=== PATIENT | male | born 1935 | race Caucasian/White ===

== ENCOUNTER → 2017-02-16 | Outpatient (CLI) | payer OTHER ==
[~2017-02-16] MED LIST: CLARITIN PO; FLOMAX0.4 MG PO; FLUTICASONE PO; JANUVIA100 MG PO; LANSOPRAZOLE30 MG PO; LANTUS100 UNITS/ SC; MOBIC7.5 MG PO
[2017-02-17 10:37] LABS: INR 1.37; PROTHROMBIN TIME 17.6 seconds (11.9-14.5)
== END ==
LOC: NPA 18:00
DX: R69 Illness, unspecified (principal)
CPT/HCPCS: 36415; 85610

== ENCOUNTER → 2017-02-18 | Outpatient (CLI) | payer OTHER ==
[2017-02-23 09:13] LABS: INR 1.64; PROTHROMBIN TIME 20.3 seconds (11.9-14.5)
[2017-02-23 09:15] LABS: ANION GAP 14.8 mmol/L (8-16); BLOOD UREA NITROGEN 14 mg/dL (7-26); BUN/CREATININE RATIO 17 (6-25); CALCIUM 9.6 mg/dL (8.4-10.2); CARBON DIOXIDE 25 mmol/L (22-29); CHLORIDE 102 mmol/L (98-107); CREATININE, SERUM 0.83 mg/dL (0.72-1.25); EST GLOMERULAR FILTRATION RATE > 60 ML/MIN (60-); GLUCOSE 182 mg/dL (74-118); POTASSIUM 3.8 mmol/L (3.5-5.1); SODIUM 138 mmol/L (136-145)
[2017-02-23 09:16] LABS: BASOPHILS # (AUTO) 0.1 (0.0-0.1); BASOPHILS % 1.2 % (0.0-1.0); EOSINOPHILS # (AUTO) 0.5 (0.0-0.4); HEMATOCRIT 47.8 % (38.2-49.6); HEMOGLOBIN 16.5 g/dL (14.0-18.0); LYMPHOCYTES # (AUTO) 2.6 (1.0-3.2); LYMPHOCYTES % 34.4 % (18.0-39.1); MEAN CORPUSCULAR HEMOGLOBIN 32.7 pg (28-32); MEAN CORPUSCULAR HGB CONC 34.5 g/dL (31-35); MEAN CORPUSCULAR VOLUME 94.8 fL (81-99); MONOCYTES # (AUTO) 0.9 (0.2-0.8); MONOCYTES % 11.8 % (4.4-11.3); NEUTROPHILS # (AUTO) 3.4 (2.1-6.9); NEUTROPHILS % 45.9 % (38.7-80.0); PLATELET COUNT 255 x10e3/uL (140-360); RED BLOOD COUNT 5.04 x10e6/uL (4.3-5.7); RED CELL DISTRIBUTION WIDTH 13.2 % (11.7-14.4)
== END ==
LOC: NPA 13:00
DX: R69 Illness, unspecified (principal)
CPT/HCPCS: 36415; 80048; 85025; 85610

== ENCOUNTER → 2017-02-23 | Outpatient (CLI) | payer OTHER ==
[2017-02-23 17:43] LABS: INR 1.2; PROTHROMBIN TIME 15.8 seconds (11.9-14.5)
== END ==
LOC: NPA 09:00
DX: R69 Illness, unspecified (principal)
CPT/HCPCS: 36415; 85610

== ENCOUNTER → 2017-02-28 | Outpatient (CLI) | payer OTHER ==
[2017-02-28 18:27] LABS: INR 1.54; PROTHROMBIN TIME 19.3 seconds (11.9-14.5)
[2017-03-02 18:58] LABS: INR 1.42; PROTHROMBIN TIME 18.1 seconds (11.9-14.5)
== END ==
LOC: NPA 17:00
DX: Z02.89 Encounter for other administrative examinations (principal)
CPT/HCPCS: 36415; 85610

== ENCOUNTER → 2017-03-02 | Outpatient (CLI) | payer OTHER | LOC: NPA 09:00 | DX: Z02.89 Encounter for other administrative examinations (principal) ==

== ENCOUNTER 2020-06-03 19:07 | Emergency (ER) | payer MEDICARE, OTHER ==
[~2020-06-03] VITALS: Ht 185.4 cm; Wt 102.1 kg
== END 2020-06-03 20:44 | disposition home or self-care (01) ==
LOC: ER 19:43
DX: L76.21 Postprocedural hemorrhage of skin and subcutaneous tissue following a dermatologic procedure (principal); Z85.828 Personal history of other malignant neoplasm of skin
CPT/HCPCS: 99282

== ENCOUNTER 2022-05-02 11:33 | Inpatient (IN) | payer MEDICARE, OTHER ==
[~2022-05-02] VITALS: Ht 185.4 cm; Wt 154.2 kg
[2022-05-02] MEDS ORDERED: FUROSEMIDE INJ 10 MG/ML 4 ML VIAL IV ONE ×2 (12:00→17:15)
[2022-05-02 12:13] LABS: BASOPHILS # (AUTO) 0.1 (0.0-0.1); BASOPHILS % 0.6 % (0.0-1.0); EOSINOPHILS # (AUTO) 0.2 (0.0-0.4); HEMATOCRIT 38.3 % (38.2-49.6); HEMOGLOBIN 12.4 g/dL (14.0-18.0); LYMPHOCYTES # (AUTO) 1.2 (1.0-3.2); LYMPHOCYTES % 13.7 % (18.0-39.1); MEAN CORPUSCULAR HEMOGLOBIN 31.5 pg (28-32); MEAN CORPUSCULAR HGB CONC 32.4 g/dL (31-35); MEAN CORPUSCULAR VOLUME 97.2 fL (81-99); MONOCYTES # (AUTO) 1.2 (0.2-0.8); NEUTROPHILS # (AUTO) 5.9 (2.1-6.9); NEUTROPHILS % 69.1 % (38.7-80.0); PLATELET COUNT 194 x10e3/uL (140-360); RED BLOOD COUNT 3.94 x10e6/uL (4.3-5.7); RED CELL DISTRIBUTION WIDTH 15.9 % (11.7-14.4)
[2022-05-02 12:19] LABS: INR 1.41; PROTHROMBIN TIME 17.4 seconds (11.9-14.5)
[2022-05-02 12:20] LABS: PARTIAL THROMBOPLASTIN TIME 35.9 seconds (23.8-35.5)
[2022-05-02 12:28] LABS: ALBUMIN 2.9 g/dL (3.5-5.0); ALBUMIN/GLOBULIN RATIO 0.6 (0.8-2.0); ANION GAP 13.3 mmol/L (8-16); CALCIUM 8.8 mg/dL (8.4-10.2); CREATININE, SERUM 0.87 mg/dL (0.72-1.25); POTASSIUM 4.3 mmol/L (3.5-5.1)
[2022-05-02 12:41] LABS: CLARITY,URINE CLEAR (CLEAR); COLOR,URINE YELLOW (YELLOW); KETONES,URINE NEGATIVE (NEGATIVE); LEUKOCYTE ESTERASE ,URINE NEGATIVE (NEGATIVE); NITRITE,URINE NEGATIVE (NEGATIVE); PROTEIN,URINE DIPSTICK 1+ (NEGATIVE); RBC,URINE 0-5 /HPF (0-5)
[2022-05-02 12:42] LABS: BACTERIA,URINE FEW /HPF; EPITHELIAL CELLS,URINE FEW /LPF
[2022-05-02] MEDS ORDERED: ONDANSETRON HCL INJ 2MG/ML 2ML 2 MG/ML VIAL IV PRN (13:15)
[2022-05-02] MEDS ORDERED: SODIUM CHLORIDE FLUSH 10 ML SYR INJ PRN (13:15)
[2022-05-02 16:29] VITALS: BP 140/77
[2022-05-02 17:54] LABS: CHOL/HDL RATIO 2.7 (3.9-4.7)
[2022-05-02] MEDS ORDERED: AVODART0.5 MG PO (17:57)
[2022-05-02] MEDS ORDERED: WARFARIN SODIUM3 MG PO (17:57)
[2022-05-02 17:58] VITALS: BP 140/77
[2022-05-02 18:39] LABS: THYROID STIMULATING HORMONE 1.687 uIU/mL (0.350-4.940)
[2022-05-02] MEDS ORDERED: DEXTROSE 50% SYRINGE 50 ML IV PRN (19:30)
[2022-05-02 20:00] VITALS: BP 117/60
[2022-05-02] MEDS: ENOXAPARIN SODIUM INJ 100 MG/ML SYR SC SCH (21:06)
[2022-05-02 21:07] LABS: CREATINE KINASE MB 2.1 ng/mL (0-5.0)
[2022-05-02] MEDS: INSULIN LISPRO 100 UNIT/1 ML 3ML VIAL SQ SCH (21:58)
[2022-05-03 01:54] VITALS: BP 117/60
[2022-05-03 04:00] VITALS: BP 134/76
[2022-05-03 04:35] LABS: BASOPHILS % 0.5 % (0.0-1.0); EOSINOPHILS # (AUTO) 0.1 (0.0-0.4); EOSINOPHILS % 1.5 % (0.0-6.0); HEMATOCRIT 36.9 % (38.2-49.6); HEMOGLOBIN 12.1 g/dL (14.0-18.0); LYMPHOCYTES # (AUTO) 1.2 (1.0-3.2); LYMPHOCYTES % 14.1 % (18.0-39.1); MEAN CORPUSCULAR HEMOGLOBIN 31.6 pg (28-32); MEAN CORPUSCULAR HGB CONC 32.8 g/dL (31-35); MEAN CORPUSCULAR VOLUME 96.3 fL (81-99); MONOCYTES # (AUTO) 1.4 (0.2-0.8); MONOCYTES % 15.6 % (4.4-11.3); NEUTROPHILS # (AUTO) 5.9 (2.1-6.9); NEUTROPHILS % 67.7 % (38.7-80.0); PLATELET COUNT 171 x10e3/uL (140-360); RED BLOOD COUNT 3.83 x10e6/uL (4.3-5.7); RED CELL DISTRIBUTION WIDTH 15.4 % (11.7-14.4)
[2022-05-03 04:47] LABS: INR 1.49; PROTHROMBIN TIME 18.1 seconds (11.9-14.5)
[2022-05-03 04:56] LABS: ALBUMIN 2.8 g/dL (3.5-5.0); ALBUMIN/GLOBULIN RATIO 0.6 (0.8-2.0); ANION GAP 14.2 mmol/L (8-16); CALCIUM 8.8 mg/dL (8.4-10.2); CREATININE, SERUM 0.81 mg/dL (0.72-1.25); MAGNESIUM 1.9 MG/DL (1.3-2.1); POTASSIUM 4.2 mmol/L (3.5-5.1)
[2022-05-03 05:16] LABS: CREATINE KINASE MB 1.5 ng/mL (0-5.0)
[2022-05-03] MEDS: INSULIN LISPRO 100 UNIT/1 ML 3ML VIAL SQ SCH ×4 (07:30→22:07)
[2022-05-03 08:00] VITALS: BP 159/93
[2022-05-03] MEDS: ENOXAPARIN SODIUM INJ 100 MG/ML SYR SC SCH (08:40)
[2022-05-03] MEDS: SITAGLIPTIN 100 MG TAB PO SCH (08:42)
[2022-05-03] MEDS: FUROSEMIDE INJ 10 MG/ML 4 ML VIAL IV SCH ×2 (08:42→22:06)
[2022-05-03] MEDS: LOSARTAN POTASSIUM 25 MG TAB PO SCH (08:42)
[2022-05-03] MEDS: DUTASTERIDE 0.5 MG CAP PO SCH (08:42)
[2022-05-03] MEDS: TAMSULOSIN HCL 0.4 MG CAP PO SCH (08:42)
[2022-05-03] MEDS: INSULIN GLARGINE 100 UNITS/ML VIAL SC SCH (08:48)
[2022-05-03 11:59] VITALS: BP 130/69
[2022-05-03] MEDS ORDERED: ONDANSETRON HCL 4 MG ORAL DISINTEGRATING TAB PO PRN (13:00)
[2022-05-03 16:08] LABS: CREATINE KINASE MB 1.6 ng/mL (0-5.0)
[2022-05-03 16:21] VITALS: BP 113/61
[2022-05-03] MEDS: WARFARIN SOD 5 MG TAB PO SCH (17:54)
[2022-05-03 20:00] VITALS: BP 98/56
[2022-05-03] MEDS: ENOXAPARIN SOD INJ 60 MG/0.6 ML SYR SC SCH (22:06)
[2022-05-04] VITALS (7 sets, daily range): BP systolic 110–133; BP diastolic 56–77
[2022-05-04 04:51] LABS: INR 1.4; PROTHROMBIN TIME 17.3 seconds (11.9-14.5)
[2022-05-04 05:01] LABS: ALBUMIN 2.3 g/dL (3.5-5.0); ALBUMIN/GLOBULIN RATIO 0.5 (0.8-2.0); CALCIUM 8.6 mg/dL (8.4-10.2)
[2022-05-04] MEDS: INSULIN LISPRO 100 UNIT/1 ML 3ML VIAL SQ SCH ×4 (07:30→21:02)
[2022-05-04] MEDS: SITAGLIPTIN 100 MG TAB PO SCH (08:59)
[2022-05-04] MEDS: LOSARTAN POTASSIUM 25 MG TAB PO SCH (08:59)
[2022-05-04] MEDS: DUTASTERIDE 0.5 MG CAP PO SCH (08:59)
[2022-05-04] MEDS: TAMSULOSIN HCL 0.4 MG CAP PO SCH (09:00)
[2022-05-04] MEDS: ENOXAPARIN SOD INJ 60 MG/0.6 ML SYR SC SCH ×2 (09:00→20:57)
[2022-05-04] MEDS: FUROSEMIDE INJ 10 MG/ML 4 ML VIAL IV SCH ×2 (09:00→20:57)
[2022-05-04] MEDS: BACITRACIN ZINC 15 GM OINT TOP SCH (09:01)
[2022-05-04] MEDS: INSULIN GLARGINE 100 UNITS/ML VIAL SC SCH (09:01)
[2022-05-04] MEDS ORDERED: TRAMADOL HCL 50 MG TAB PO PRN (10:00)
[2022-05-04] MEDS: WARFARIN SOD 5 MG TAB PO SCH (17:11)
[2022-05-05] VITALS (7 sets, daily range): BP systolic 99–127; BP diastolic 44–60
[2022-05-05 05:03] LABS: BASOPHILS # (AUTO) 0.1 (0.0-0.1); BASOPHILS % 0.6 % (0.0-1.0); EOSINOPHILS # (AUTO) 0.3 (0.0-0.4); EOSINOPHILS % 3.4 % (0.0-6.0); HEMATOCRIT 37.1 % (38.2-49.6); HEMOGLOBIN 12.1 g/dL (14.0-18.0); LYMPHOCYTES # (AUTO) 1.3 (1.0-3.2); LYMPHOCYTES % 16.3 % (18.0-39.1); MEAN CORPUSCULAR HEMOGLOBIN 31.3 pg (28-32); MEAN CORPUSCULAR HGB CONC 32.6 g/dL (31-35); MEAN CORPUSCULAR VOLUME 95.9 fL (81-99); MONOCYTES # (AUTO) 1.2 (0.2-0.8); NEUTROPHILS % 63.8 % (38.7-80.0); PLATELET COUNT 155 x10e3/uL (140-360); RED BLOOD COUNT 3.87 x10e6/uL (4.3-5.7); RED CELL DISTRIBUTION WIDTH 15.2 % (11.7-14.4)
[2022-05-05 05:27] LABS: ALBUMIN 2.5 g/dL (3.5-5.0); ALBUMIN/GLOBULIN RATIO 0.5 (0.8-2.0); ANION GAP 13.2 mmol/L (8-16); CALCIUM 8.4 mg/dL (8.4-10.2); CREATININE, SERUM 1.14 mg/dL (0.72-1.25); POTASSIUM 4.2 mmol/L (3.5-5.1)
[2022-05-05 05:38] LABS: INR 1.51; PROTHROMBIN TIME 18.3 seconds (11.9-14.5)
[2022-05-05] MEDS: INSULIN LISPRO 100 UNIT/1 ML 3ML VIAL SQ SCH ×4 (07:30→21:59)
[2022-05-05] MEDS: FUROSEMIDE INJ 10 MG/ML 4 ML VIAL IV SCH ×2 (08:56→21:33)
[2022-05-05] MEDS: SITAGLIPTIN 100 MG TAB PO SCH (08:56)
[2022-05-05] MEDS: DUTASTERIDE 0.5 MG CAP PO SCH (08:57)
[2022-05-05] MEDS: BACITRACIN ZINC 15 GM OINT TOP SCH (08:57)
[2022-05-05] MEDS: LOSARTAN POTASSIUM 25 MG TAB PO SCH (08:57)
[2022-05-05] MEDS: TAMSULOSIN HCL 0.4 MG CAP PO SCH (08:57)
[2022-05-05] MEDS: INSULIN GLARGINE 100 UNITS/ML VIAL SC SCH (09:38)
[2022-05-05] MEDS ORDERED: WARFARIN SOD 3 MG TAB PO SCH (17:00)
[2022-05-06] VITALS (8 sets, daily range): BP systolic 102–134; BP diastolic 49–67
[2022-05-06 05:09] LABS: INR 1.52; PROTHROMBIN TIME 18.8 seconds (11.9-14.5)
[2022-05-06 05:15] LABS: ANION GAP 13.2 mmol/L (8-16); CALCIUM 8.5 mg/dL (8.4-10.2); CREATININE, SERUM 0.89 mg/dL (0.72-1.25); POTASSIUM 4.2 mmol/L (3.5-5.1)
[2022-05-06] MEDS: INSULIN LISPRO 100 UNIT/1 ML 3ML VIAL SQ SCH ×4 (07:30→21:52)
[2022-05-06] MEDS: INSULIN GLARGINE 100 UNITS/ML VIAL SC SCH (08:48)
[2022-05-06] MEDS: DUTASTERIDE 0.5 MG CAP PO SCH (08:49)
[2022-05-06] MEDS: SITAGLIPTIN 100 MG TAB PO SCH (08:50)
[2022-05-06] MEDS: FUROSEMIDE INJ 10 MG/ML 4 ML VIAL IV SCH ×2 (08:51→21:47)
[2022-05-06] MEDS: BACITRACIN ZINC 15 GM OINT TOP SCH (08:51)
[2022-05-06] MEDS: LOSARTAN POTASSIUM 25 MG TAB PO SCH (08:51)
[2022-05-06] MEDS: TAMSULOSIN HCL 0.4 MG CAP PO SCH (08:51)
[2022-05-06] MEDS ORDERED: WARFARIN SOD 3 MG TAB PO SCH (17:00)
[2022-05-07] VITALS: BP 105/59
[2022-05-07 06:02] LABS: INR 1.6; PROTHROMBIN TIME 19.6 seconds (11.9-14.5)
[2022-05-07 06:18] LABS: ALBUMIN 2.4 g/dL (3.5-5.0); ALBUMIN/GLOBULIN RATIO 0.5 (0.8-2.0); ANION GAP 13.2 mmol/L (8-16); CALCIUM 8.5 mg/dL (8.4-10.2); CREATININE, SERUM 0.86 mg/dL (0.72-1.25); POTASSIUM 4.2 mmol/L (3.5-5.1)
[2022-05-07] MEDS: INSULIN LISPRO 100 UNIT/1 ML 3ML VIAL SQ SCH ×2 (07:30→11:39)
[2022-05-07 08:00] VITALS: BP_SYST 130; BP_SYST 132; BP_DIAS 71; BP_DIAS 85
[2022-05-07 08:09] VITALS: BP 130/71
[2022-05-07] MEDS ORDERED: FUROSEMIDE 40 MG TAB PO SCH (09:00)
[2022-05-07] MEDS: TAMSULOSIN HCL 0.4 MG CAP PO SCH (09:06)
[2022-05-07] MEDS: DUTASTERIDE 0.5 MG CAP PO SCH (09:06)
[2022-05-07] MEDS: SITAGLIPTIN 100 MG TAB PO SCH (09:06)
[2022-05-07] MEDS: LOSARTAN POTASSIUM 25 MG TAB PO SCH (09:07)
[2022-05-07] MEDS: BACITRACIN ZINC 15 GM OINT TOP SCH (09:07)
[2022-05-07] MEDS: INSULIN GLARGINE 100 UNITS/ML VIAL SC SCH (09:13)
[2022-05-07 11:54] VITALS: BP 121/66
== END 2022-05-07 16:44 | disposition home or self-care (01) | DRG 291 ==
LOC: ER 11:52 → INTOOBSV 13:22 → ERHOLD 13:22 → MED/SURG 16:09 → OBSVTOIN 05-04 09:45
PROVIDERS: ADMIT Family Medicine; ATTEND Family Medicine
DX: I11.0 Hypertensive heart disease with heart failure (principal); I50.43 Acute on chronic combined systolic (congestive) and diastolic (congestive) heart failure; Z68.42 Body mass index [BMI] 45.0-49.9, adult; Z86.73 Personal history of transient ischemic attack (TIA), and cerebral infarction without residual deficits; I48.91 Unspecified atrial fibrillation; Z79.01 Long term (current) use of anticoagulants; E66.01 Morbid (severe) obesity due to excess calories; Z88.0 Allergy status to penicillin; Z20.822 Contact with and (suspected) exposure to COVID-19; Z79.899 Other long term (current) drug therapy; E11.40 Type 2 diabetes mellitus with diabetic neuropathy, unspecified
CPT/HCPCS: 36415; 51700; 71045; 80048; 80053; 80061; 81001; 82550; 82553; 82948; 83735; 83880; 84443; 84484; 85025; 85610; 85730; 87040; 93005; 93306; 94799; 99252; 99285; G0378; J1650; J1815; J1940

== ENCOUNTER 2022-05-19 11:51 | Inpatient (IN) | payer MEDICARE ==
[~2022-05-19] VITALS: Ht 185.4 cm; Wt 108.9 kg
[~2022-05-19 11:51] MED LIST changes: +AVODART0.5 MG PO; +WARFARIN SODIUM3 MG PO
[2022-05-19] MEDS ORDERED: JARDIANCE25 MG PO (12:44)
[2022-05-19] MEDS ORDERED: ATORVASTATIN CA20 MG PO (12:46)
[2022-05-19] MEDS ORDERED: LISINOPRIL10 MG PO (12:46)
[2022-05-19 12:53] LABS: BASOPHILS # (AUTO) 0.1 (0.0-0.1); BASOPHILS % 0.6 % (0.0-1.0); EOSINOPHILS # (AUTO) 0.1 (0.0-0.4); EOSINOPHILS % 0.9 % (0.0-6.0); HEMATOCRIT 25.4 % (38.2-49.6); HEMOGLOBIN 8.3 g/dL (14.0-18.0); MEAN CORPUSCULAR HEMOGLOBIN 31.1 pg (28-32); MEAN CORPUSCULAR HGB CONC 32.7 g/dL (31-35); MEAN CORPUSCULAR VOLUME 95.1 fL (81-99); MONOCYTES # (AUTO) 1.1 (0.2-0.8); MONOCYTES % 12.7 % (4.4-11.3); NEUTROPHILS # (AUTO) 6.6 (2.1-6.9); NEUTROPHILS % 73.9 % (38.7-80.0); PLATELET COUNT 177 x10e3/uL (140-360); RED BLOOD COUNT 2.67 x10e6/uL (4.3-5.7); RED CELL DISTRIBUTION WIDTH 16.1 % (11.7-14.4)
[2022-05-19 12:59] LABS: PARTIAL THROMBOPLASTIN TIME 62.1 seconds (23.8-35.5)
[2022-05-19 13:05] LABS: PROTHROMBIN TIME 56.3 seconds (11.9-14.5)
[2022-05-19 13:06] LABS: INR 6.46
[2022-05-19 13:07] LABS: ALBUMIN 2.4 g/dL (3.5-5.0); ALBUMIN/GLOBULIN RATIO 0.6 (0.8-2.0); ANION GAP 16.5 mmol/L (8-16); CALCIUM 8.8 mg/dL (8.4-10.2); CREATININE, SERUM 1.99 mg/dL (0.72-1.25); MAGNESIUM 3.1 MG/DL (1.3-2.1); POTASSIUM 4.5 mmol/L (3.5-5.1)
[2022-05-19 13:14] LABS: CREATINE KINASE MB 3.1 ng/mL (0-5.0)
[2022-05-19 14:15] LABS: CLARITY,URINE SL CLOUDY (CLEAR); COLOR,URINE YELLOW (YELLOW); KETONES,URINE NEGATIVE (NEGATIVE); LEUKOCYTE ESTERASE ,URINE SMALL (NEGATIVE); NITRITE,URINE NEGATIVE (NEGATIVE); PROTEIN,URINE DIPSTICK 1+ (NEGATIVE); URINE UROBILINOGEN 1 mg/dL (0.2 - 1)
[2022-05-19 14:24] LABS: AMORPHOUS SEDIMENT,URINE MODERATE (FEW); BACTERIA,URINE FEW /HPF; EPITHELIAL CELLS,URINE MODERATE /LPF; RBC,URINE 0-5 /HPF (0-5); WBC,URINE (MAN) 0-5 /HPF (0-5)
[2022-05-19] MEDS ORDERED: PHYTONADIONE 10 MG/ML AMP PO ONE (14:30)
[2022-05-19] MEDS ORDERED: SODIUM CHLORIDE 0.9% 250ML 250 ML IV ONE ×2 (14:45→21:30)
[2022-05-19 15:29] LABS: % IRON SATURATION 19 % (15-50); IRON 83 ug/dL (65-175); TOTAL IRON BINDING CAPACITY 426 ug/dL (261-478); TRANSFERRIN 304 mg/dL (174-364)
[2022-05-19] MEDS ORDERED: FUROSEMIDE INJ 10 MG/ML 2 ML VIAL IV ONE (17:00)
[2022-05-19 17:10] VITALS: BP 125/112
[2022-05-19 17:16] VITALS: BP 125/112
[2022-05-19 17:33] VITALS: BP 97/47
[2022-05-19] MEDS ORDERED: LASIX20 MG PO (17:42)
[2022-05-19 17:48] VITALS: BP 97/47
[2022-05-19 18:49] LABS: BASOPHILS % 0.5 % (0.0-1.0); EOSINOPHILS # (AUTO) 0.1 (0.0-0.4); EOSINOPHILS % 0.7 % (0.0-6.0); HEMOGLOBIN 7.8 g/dL (14.0-18.0); LYMPHOCYTES # (AUTO) 1.2 (1.0-3.2); LYMPHOCYTES % 13.4 % (18.0-39.1); MEAN CORPUSCULAR HEMOGLOBIN 31.6 pg (28-32); MEAN CORPUSCULAR HGB CONC 32.5 g/dL (31-35); MEAN CORPUSCULAR VOLUME 97.2 fL (81-99); MONOCYTES # (AUTO) 1.1 (0.2-0.8); NEUTROPHILS # (AUTO) 6.4 (2.1-6.9); NEUTROPHILS % 72.4 % (38.7-80.0); PLATELET COUNT 182 x10e3/uL (140-360); RED BLOOD COUNT 2.47 x10e6/uL (4.3-5.7); RED CELL DISTRIBUTION WIDTH 16.1 % (11.7-14.4)
[2022-05-19 19:17] LABS: CREATINE KINASE MB 4.1 ng/mL (0-5.0)
[2022-05-19 20:00] VITALS: BP 102/50
[2022-05-19 20:40] VITALS: BP 102/50
[2022-05-19] MEDS: ATORVASTATIN 20 MG TAB PO SCH (21:00)
[2022-05-19] MEDS ORDERED: OCTREOTIDE ACETATE 500 MCG in SODIUM CHLORIDE 0.9% 250ML 249 ML IV STA (21:18)
[2022-05-19] MEDS ORDERED: PHYTONADIONE 10 MG/ML AMP SQ ONE (21:30)
[2022-05-19 22:12] LABS: BASOPHILS # (AUTO) 0.1 (0.0-0.1); BASOPHILS % 0.6 % (0.0-1.0); EOSINOPHILS # (AUTO) 0.1 (0.0-0.4); EOSINOPHILS % 0.7 % (0.0-6.0); HEMOGLOBIN 7.4 g/dL (14.0-18.0); LYMPHOCYTES # (AUTO) 1.4 (1.0-3.2); LYMPHOCYTES % 16.1 % (18.0-39.1); MEAN CORPUSCULAR HGB CONC 32.2 g/dL (31-35); MEAN CORPUSCULAR VOLUME 96.2 fL (81-99); MONOCYTES % 12.1 % (4.4-11.3); NEUTROPHILS # (AUTO) 5.8 (2.1-6.9); NEUTROPHILS % 69.2 % (38.7-80.0); PLATELET COUNT 192 x10e3/uL (140-360); RED BLOOD COUNT 2.39 x10e6/uL (4.3-5.7)
[2022-05-19 22:21] LABS: INR 3.26; PROTHROMBIN TIME 33.5 seconds (11.9-14.5)
[2022-05-20] MEDS: ONDANSETRON HCL INJ 2MG/ML 2ML 2 MG/ML VIAL IV PRN (00:04)
[2022-05-20 01:00] VITALS: BP 101/41
[2022-05-20] MEDS ORDERED: FUROSEMIDE INJ 10 MG/ML 2 ML VIAL ONE (01:35)
[2022-05-20] MEDS ORDERED: SODIUM CHLORIDE 0.9% 250ML 250 ML ONE ×2 (01:35→13:02)
[2022-05-20 04:00] VITALS: BP 116/60
[2022-05-20 04:56] LABS: BASOPHILS % 0.4 % (0.0-1.0); EOSINOPHILS % 0.2 % (0.0-6.0); HEMATOCRIT 24.8 % (38.2-49.6); LYMPHOCYTES # (AUTO) 1.2 (1.0-3.2); LYMPHOCYTES % 11.9 % (18.0-39.1); MEAN CORPUSCULAR HEMOGLOBIN 31.4 pg (28-32); MEAN CORPUSCULAR HGB CONC 32.3 g/dL (31-35); MEAN CORPUSCULAR VOLUME 97.3 fL (81-99); MONOCYTES # (AUTO) 1.1 (0.2-0.8); MONOCYTES % 11.2 % (4.4-11.3); NEUTROPHILS # (AUTO) 7.3 (2.1-6.9); PLATELET COUNT 198 x10e3/uL (140-360); RED BLOOD COUNT 2.55 x10e6/uL (4.3-5.7); RED CELL DISTRIBUTION WIDTH 16.2 % (11.7-14.4)
[2022-05-20 05:06] LABS: INR 1.94; PROTHROMBIN TIME 22.6 seconds (11.9-14.5)
[2022-05-20 05:07] LABS: PARTIAL THROMBOPLASTIN TIME 42.4 seconds (23.8-35.5)
[2022-05-20 05:17] LABS: ALBUMIN 2.7 g/dL (3.5-5.0); ALBUMIN/GLOBULIN RATIO 0.7 (0.8-2.0); ANION GAP 20.5 mmol/L (8-16); CALCIUM 8.8 mg/dL (8.4-10.2); CREATININE, SERUM 2.28 mg/dL (0.72-1.25); POTASSIUM 5.5 mmol/L (3.5-5.1)
[2022-05-20 05:38] LABS: CREATINE KINASE MB 3.8 ng/mL (0-5.0)
[2022-05-20 08:45] VITALS: BP 118/52
[2022-05-20 08:58] VITALS: BP 118/52
[2022-05-20] MEDS: INSULIN GLARGINE 100 UNITS/ML VIAL SC SCH (09:00)
[2022-05-20] MEDS: TAMSULOSIN HCL 0.4 MG CAP PO SCH (09:04)
[2022-05-20] MEDS: DUTASTERIDE 0.5 MG CAP PO SCH (09:04)
[2022-05-20] MEDS ORDERED: ALPRAZOLAM 0.25 MG TAB PO PRN (11:15)
[2022-05-20 12:06] LABS: BASOPHILS # (AUTO) 0.1 (0.0-0.1); BASOPHILS % 0.5 % (0.0-1.0); EOSINOPHILS % 0.3 % (0.0-6.0); HEMATOCRIT 25.7 % (38.2-49.6); HEMOGLOBIN 8.2 g/dL (14.0-18.0); LYMPHOCYTES # (AUTO) 1.5 (1.0-3.2); LYMPHOCYTES % 13.7 % (18.0-39.1); MEAN CORPUSCULAR HEMOGLOBIN 31.3 pg (28-32); MEAN CORPUSCULAR HGB CONC 31.9 g/dL (31-35); MEAN CORPUSCULAR VOLUME 98.1 fL (81-99); MONOCYTES # (AUTO) 1.3 (0.2-0.8); MONOCYTES % 12.6 % (4.4-11.3); NEUTROPHILS # (AUTO) 7.6 (2.1-6.9); NEUTROPHILS % 71.2 % (38.7-80.0); PLATELET COUNT 220 x10e3/uL (140-360); RED BLOOD COUNT 2.62 x10e6/uL (4.3-5.7); RED CELL DISTRIBUTION WIDTH 16.8 % (11.7-14.4)
[2022-05-20 12:32] LABS: CREATINE KINASE MB 4.3 ng/mL (0-5.0)
[2022-05-20 15:00] VITALS: BP 118/64
[2022-05-20 17:30] LABS: BASOPHILS # (AUTO) 0.1 (0.0-0.1); BASOPHILS % 0.4 % (0.0-1.0); EOSINOPHILS % 0.3 % (0.0-6.0); HEMATOCRIT 24.2 % (38.2-49.6); HEMOGLOBIN 7.8 g/dL (14.0-18.0); LYMPHOCYTES # (AUTO) 1.7 (1.0-3.2); LYMPHOCYTES % 14.4 % (18.0-39.1); MEAN CORPUSCULAR HEMOGLOBIN 31.2 pg (28-32); MEAN CORPUSCULAR HGB CONC 32.2 g/dL (31-35); MEAN CORPUSCULAR VOLUME 96.8 fL (81-99); MONOCYTES # (AUTO) 1.4 (0.2-0.8); MONOCYTES % 12.2 % (4.4-11.3); NEUTROPHILS # (AUTO) 8.2 (2.1-6.9); PLATELET COUNT 202 x10e3/uL (140-360); RED CELL DISTRIBUTION WIDTH 16.4 % (11.7-14.4)
[2022-05-20 17:41] LABS: INR 1.58; PROTHROMBIN TIME 19.4 seconds (11.9-14.5)
[2022-05-20 17:42] LABS: PARTIAL THROMBOPLASTIN TIME 36.5 seconds (23.8-35.5)
[2022-05-20] MEDS ORDERED: LORAZEPAM INJ 2 MG/ML VIAL IV PRN (19:30)
[2022-05-20] MEDS: ATORVASTATIN 20 MG TAB PO SCH (20:21)
[2022-05-20 21:22] VITALS: BP 105/52
[2022-05-20] MEDS ORDERED: LORAZEPAM INJ 2 MG/ML VIAL IV ONE (22:00)
[2022-05-21] VITALS (7 sets, daily range): BP systolic 102–118; BP diastolic 37–87
[2022-05-21] MEDS: SODIUM CHLORIDE 0.9% 1000ML 1,000 ML IV SCH (08:19)
[2022-05-21] MEDS: TAMSULOSIN HCL 0.4 MG CAP PO SCH (08:29)
[2022-05-21] MEDS: INSULIN GLARGINE 100 UNITS/ML VIAL SC SCH (08:29)
[2022-05-21] MEDS: DUTASTERIDE 0.5 MG CAP PO SCH (08:29)
[2022-05-21] MEDS: BACITRACIN ZINC 15 GM OINT TOP SCH (08:30)
[2022-05-21 09:03] LABS: INR 1.41; PROTHROMBIN TIME 17.8 seconds (11.9-14.5)
[2022-05-21 09:21] LABS: ANION GAP 22.6 mmol/L (8-16); CALCIUM 9.3 mg/dL (8.4-10.2); CARBON DIOXIDE 15 mmol/L (22-29); CHLORIDE 106 mmol/L (98-107); CREATININE, SERUM 2.81 mg/dL (0.72-1.25); GLUCOSE 275 mg/dL (74-118); POTASSIUM 5.6 mmol/L (3.5-5.1); SODIUM 138 mmol/L (136-145)
[2022-05-21 09:27] LABS: BLOOD UREA NITROGEN 133 mg/dL (7-26)
[2022-05-21 09:54] LABS: BASOPHILS # (AUTO) 0.1 (0.0-0.1); BASOPHILS % 0.5 % (0.0-1.0); EOSINOPHILS # (AUTO) 0.1 (0.0-0.4); HEMATOCRIT 24.6 % (38.2-49.6); HEMOGLOBIN 7.8 g/dL (14.0-18.0); LYMPHOCYTES # (AUTO) 1.4 (1.0-3.2); LYMPHOCYTES % 12.6 % (18.0-39.1); MEAN CORPUSCULAR HEMOGLOBIN 31.7 pg (28-32); MEAN CORPUSCULAR HGB CONC 31.7 g/dL (31-35); MONOCYTES # (AUTO) 1.4 (0.2-0.8); MONOCYTES % 12.6 % (4.4-11.3); NEUTROPHILS # (AUTO) 7.9 (2.1-6.9); NEUTROPHILS % 71.9 % (38.7-80.0); PLATELET COUNT 213 x10e3/uL (140-360); RED BLOOD COUNT 2.46 x10e6/uL (4.3-5.7)
[2022-05-21] MEDS ORDERED: SODIUM CHLORIDE 0.9% 250ML 250 ML ONE (11:14)
[2022-05-21 14:59] LABS: BASOPHILS # (AUTO) 0.1 (0.0-0.1); BASOPHILS % 0.5 % (0.0-1.0); EOSINOPHILS # (AUTO) 0.2 (0.0-0.4); EOSINOPHILS % 1.2 % (0.0-6.0); HEMATOCRIT 24.9 % (38.2-49.6); HEMOGLOBIN 7.9 g/dL (14.0-18.0); LYMPHOCYTES # (AUTO) 1.6 (1.0-3.2); LYMPHOCYTES % 11.9 % (18.0-39.1); MEAN CORPUSCULAR HEMOGLOBIN 31.7 pg (28-32); MEAN CORPUSCULAR HGB CONC 31.7 g/dL (31-35); MONOCYTES % 15.3 % (4.4-11.3); NEUTROPHILS # (AUTO) 9.1 (2.1-6.9); NEUTROPHILS % 69.9 % (38.7-80.0); PLATELET COUNT 205 x10e3/uL (140-360); RED BLOOD COUNT 2.49 x10e6/uL (4.3-5.7); RED CELL DISTRIBUTION WIDTH 17.2 % (11.7-14.4)
[2022-05-21 19:02] LABS: BASOPHILS # (AUTO) 0.1 (0.0-0.1); BASOPHILS % 0.4 % (0.0-1.0); EOSINOPHILS # (AUTO) 0.1 (0.0-0.4); EOSINOPHILS % 0.8 % (0.0-6.0); HEMATOCRIT 25.4 % (38.2-49.6); LYMPHOCYTES # (AUTO) 1.4 (1.0-3.2); LYMPHOCYTES % 10.5 % (18.0-39.1); MEAN CORPUSCULAR HEMOGLOBIN 31.3 pg (28-32); MEAN CORPUSCULAR HGB CONC 31.5 g/dL (31-35); MEAN CORPUSCULAR VOLUME 99.2 fL (81-99); MONOCYTES # (AUTO) 1.8 (0.2-0.8); MONOCYTES % 13.2 % (4.4-11.3); NEUTROPHILS # (AUTO) 9.9 (2.1-6.9); PLATELET COUNT 211 x10e3/uL (140-360); RED BLOOD COUNT 2.56 x10e6/uL (4.3-5.7); RED CELL DISTRIBUTION WIDTH 17.3 % (11.7-14.4)
[2022-05-21] MEDS: ATORVASTATIN 20 MG TAB PO SCH (20:43)
[2022-05-22] VITALS (9 sets, daily range): BP systolic 112–130; BP diastolic 47–84
[2022-05-22] MEDS: SODIUM CHLORIDE 0.9% 1000ML 1,000 ML IV SCH (00:07)
[2022-05-22 05:19] LABS: BASOPHILS # (AUTO) 0.1 (0.0-0.1); BASOPHILS % 0.4 % (0.0-1.0); EOSINOPHILS # (AUTO) 0.1 (0.0-0.4); EOSINOPHILS % 0.7 % (0.0-6.0); HEMATOCRIT 26.4 % (38.2-49.6); HEMOGLOBIN 8.3 g/dL (14.0-18.0); LYMPHOCYTES # (AUTO) 1.3 (1.0-3.2); LYMPHOCYTES % 10.3 % (18.0-39.1); MEAN CORPUSCULAR HEMOGLOBIN 31.9 pg (28-32); MEAN CORPUSCULAR HGB CONC 31.4 g/dL (31-35); MEAN CORPUSCULAR VOLUME 101.5 fL (81-99); MONOCYTES # (AUTO) 1.4 (0.2-0.8); MONOCYTES % 11.6 % (4.4-11.3); NEUTROPHILS # (AUTO) 9.3 (2.1-6.9); NEUTROPHILS % 75.9 % (38.7-80.0); PLATELET COUNT 224 x10e3/uL (140-360); RED CELL DISTRIBUTION WIDTH 17.4 % (11.7-14.4)
[2022-05-22 05:28] LABS: INR 1.34; PROTHROMBIN TIME 17.1 seconds (11.9-14.5)
[2022-05-22] MEDS: DUTASTERIDE 0.5 MG CAP PO SCH (07:57)
[2022-05-22] MEDS: INSULIN GLARGINE 100 UNITS/ML VIAL SC SCH (07:58)
[2022-05-22] MEDS: TAMSULOSIN HCL 0.4 MG CAP PO SCH (07:58)
[2022-05-22 08:46] LABS: ANION GAP 21.3 mmol/L (8-16); CALCIUM 9.3 mg/dL (8.4-10.2); CARBON DIOXIDE 17 mmol/L (22-29); CHLORIDE 108 mmol/L (98-107); CREATININE, SERUM 3.16 mg/dL (0.72-1.25); GLUCOSE 273 mg/dL (74-118); POTASSIUM 5.3 mmol/L (3.5-5.1); SODIUM 141 mmol/L (136-145)
[2022-05-22 08:49] LABS: BLOOD UREA NITROGEN 145 mg/dL (7-26)
[2022-05-22] MEDS ORDERED: FUROSEMIDE INJ 10 MG/ML 4 ML VIAL IV ONE (15:30)
[2022-05-22] MEDS: LORAZEPAM INJ 2 MG/ML VIAL IV PRN (15:36)
[2022-05-22] MEDS ORDERED: SODIUM BICARBONATE 8.4% 150 ML in DEXTROSE 5% 1,000 ML IV ONE (17:00)
[2022-05-22 17:07] LABS: ALANINE AMINOTRANSFERASE 108 IU/L (0-55); ALBUMIN 2.9 g/dL (3.5-5.0); ALBUMIN/GLOBULIN RATIO 0.7 (0.8-2.0); ALKALINE PHOSPHATASE 80 IU/L (40-150); CALCIUM 8.6 mg/dL (8.4-10.2); CARBON DIOXIDE 18 mmol/L (22-29); CHLORIDE 110 mmol/L (98-107); CREATININE, SERUM 2.99 mg/dL (0.72-1.25); GLUCOSE 265 mg/dL (74-118); SODIUM 142 mmol/L (136-145)
[2022-05-22 17:09] LABS: BLOOD UREA NITROGEN 143 mg/dL (7-26)
[2022-05-22 17:12] LABS: ALBUMIN 2.8 g/dL (3.5-5.0)
[2022-05-22] MEDS: BACITRACIN ZINC 15 GM OINT TOP SCH (17:28)
[2022-05-23 03:39] VITALS: BP 108/53
[2022-05-23 04:46] LABS: CLARITY,URINE CLOUDY (CLEAR); COLOR,URINE YELLOW (YELLOW); KETONES,URINE NEGATIVE (NEGATIVE); LEUKOCYTE ESTERASE ,URINE TRACE (NEGATIVE); NITRITE,URINE NEGATIVE (NEGATIVE); PROTEIN,URINE DIPSTICK 2+ (NEGATIVE); URINE UROBILINOGEN 1 mg/dL (0.2 - 1)
[2022-05-23 05:04] LABS: BACTERIA,URINE MODERATE /HPF; EPITHELIAL CELLS,URINE FEW /LPF; RBC,URINE >50 /HPF (0-5); RENAL EPITHELIAL CELLS,URINE FEW; TRANSITIONAL EPI CELLS,URINE FEW
[2022-05-23 05:31] LABS: BASOPHILS % 0.3 % (0.0-1.0); EOSINOPHILS # (AUTO) 0.2 (0.0-0.4); EOSINOPHILS % 1.3 % (0.0-6.0); HEMATOCRIT 25.7 % (38.2-49.6); HEMOGLOBIN 8.2 g/dL (14.0-18.0); LYMPHOCYTES # (AUTO) 1.4 (1.0-3.2); LYMPHOCYTES % 11.6 % (18.0-39.1); MEAN CORPUSCULAR HEMOGLOBIN 31.9 pg (28-32); MEAN CORPUSCULAR HGB CONC 31.9 g/dL (31-35); MONOCYTES # (AUTO) 1.4 (0.2-0.8); MONOCYTES % 11.7 % (4.4-11.3); NEUTROPHILS # (AUTO) 8.7 (2.1-6.9); NEUTROPHILS % 74.2 % (38.7-80.0); PLATELET COUNT 246 x10e3/uL (140-360); RED BLOOD COUNT 2.57 x10e6/uL (4.3-5.7); RED CELL DISTRIBUTION WIDTH 18.2 % (11.7-14.4)
[2022-05-23 05:59] LABS: ALANINE AMINOTRANSFERASE 118 IU/L (0-55); ALBUMIN 3.2 g/dL (3.5-5.0); ALBUMIN/GLOBULIN RATIO 0.7 (0.8-2.0); ALKALINE PHOSPHATASE 84 IU/L (40-150); CALCIUM 9.1 mg/dL (8.4-10.2); CARBON DIOXIDE 21 mmol/L (22-29); CHLORIDE 108 mmol/L (98-107); CREATININE, SERUM 3.31 mg/dL (0.72-1.25); GLUCOSE 325 mg/dL (74-118); SODIUM 142 mmol/L (136-145)
[2022-05-23 06:02] LABS: BLOOD UREA NITROGEN 150 mg/dL (7-26)
[2022-05-23 07:23] LABS: CREATININE,URINE RANDOM 92.58 mg/dL (63-166); TOTAL PROTEIN, URINE 40.6 mg/dL (1-14)
[2022-05-23 08:00] VITALS: BP 134/47
[2022-05-23] MEDS: INSULIN GLARGINE 100 UNITS/ML VIAL SC SCH ×2 (08:55→09:00)
[2022-05-23] MEDS: DUTASTERIDE 0.5 MG CAP PO SCH (09:00)
[2022-05-23] MEDS: TAMSULOSIN HCL 0.4 MG CAP PO SCH (09:00)
[2022-05-23] MEDS: BACITRACIN ZINC 15 GM OINT TOP SCH (09:47)
[2022-05-23] MEDS ORDERED: SODIUM CHLORIDE 0.9% 250ML 250 ML ONE (10:06)
[2022-05-23 12:00] VITALS: BP 141/53
[2022-05-23] MEDS ORDERED: DEXTROSE 5%/0.9% SOD CHL 1,000 ML IV ONE (13:15)
[2022-05-23 15:00] VITALS: BP 131/58
[2022-05-23] MEDS: LORAZEPAM INJ 2 MG/ML VIAL IV PRN (19:00)
[2022-05-23] MEDS: Morphine 2mg Syringe 2 MG/ML SYR IV PRN (19:00)
[2022-05-23 20:00] VITALS: BP 130/88
[2022-05-23 21:00] VITALS: BP 120/60
[2022-05-24] VITALS (8 sets, daily range): BP systolic 119–131; BP diastolic 57–76
[2022-05-24 05:41] LABS: ANION GAP 19.7 mmol/L (8-16); CALCIUM 8.9 mg/dL (8.4-10.2); CARBON DIOXIDE 18 mmol/L (22-29); CHLORIDE 113 mmol/L (98-107); CREATININE, SERUM 2.57 mg/dL (0.72-1.25); GLUCOSE 328 mg/dL (74-118); POTASSIUM 4.7 mmol/L (3.5-5.1); SODIUM 146 mmol/L (136-145)
[2022-05-24 05:44] LABS: BLOOD UREA NITROGEN 146 mg/dL (7-26)
[2022-05-24] MEDS: Morphine 2mg Syringe 2 MG/ML SYR IV PRN (08:06)
[2022-05-24] MEDS: ONDANSETRON HCL INJ 2MG/ML 2ML 2 MG/ML VIAL IV PRN ×3 (08:06→17:27)
[2022-05-24] MEDS: BACITRACIN ZINC 15 GM OINT TOP SCH (08:07)
[2022-05-24] MEDS: TAMSULOSIN HCL 0.4 MG CAP PO SCH (08:07)
[2022-05-24] MEDS: DUTASTERIDE 0.5 MG CAP PO SCH (08:07)
[2022-05-24] MEDS: INSULIN GLARGINE 100 UNITS/ML VIAL SC SCH (08:07)
[2022-05-24] MEDS: Morphine 4mg INJECTION 4 MG/ML INJ IV SCH ×2 (12:06→17:28)
[2022-05-24] MEDS: LORAZEPAM INJ 2 MG/ML VIAL IV PRN (17:28)
[2022-05-25] MEDS: Morphine 4mg INJECTION 4 MG/ML INJ IV SCH ×3 (00:23→12:22)
[2022-05-25 04:00] VITALS: BP 118/54
[2022-05-25 08:56] VITALS: BP 101/56
[2022-05-25] MEDS: BACITRACIN ZINC 15 GM OINT TOP SCH (09:00)
[2022-05-25] MEDS: TAMSULOSIN HCL 0.4 MG CAP PO SCH (09:00)
[2022-05-25] MEDS: DUTASTERIDE 0.5 MG CAP PO SCH (09:00)
[2022-05-25] MEDS: INSULIN GLARGINE 100 UNITS/ML VIAL SC SCH (09:00)
[2022-05-25 10:30] VITALS: BP 101/56
[2022-05-25] MEDS: ONDANSETRON HCL INJ 2MG/ML 2ML 2 MG/ML VIAL IV PRN (12:21)
[2022-05-25 12:33] VITALS: BP 105/58
== END 2022-05-25 12:36 | disposition hospice, home (50) | DRG 813 ==
LOC: ER 12:13 → ERHOLD 14:59 → MED/SURG3 16:33 → IMCU 23:20 → MED/SURG 05-20 15:27
PROVIDERS: ADMIT Family Medicine; ATTEND Family Medicine
PROC: 30233L1 Transfusion of Nonautologous Fresh Plasma into Peripheral Vein, Percutaneous Approach (ICD-10-PCS; principal; 2022-05-20)
PROC: 30233N1 Transfusion of Nonautologous Red Blood Cells into Peripheral Vein, Percutaneous Approach (ICD-10-PCS; 2022-05-20)
PROC: 30233K1 Transfusion of Nonautologous Frozen Plasma into Peripheral Vein, Percutaneous Approach (ICD-10-PCS; 2022-05-20)
DX: D68.9 Coagulation defect, unspecified (principal); J96.00 Acute respiratory failure, unspecified whether with hypoxia or hypercapnia; N17.0 Acute kidney failure with tubular necrosis; G93.41 Metabolic encephalopathy; K92.2 Gastrointestinal hemorrhage, unspecified; I50.42 Chronic combined systolic (congestive) and diastolic (congestive) heart failure; I69.351 Hemiplegia and hemiparesis following cerebral infarction affecting right dominant side; B18.1 Chronic viral hepatitis B without delta-agent; N39.0 Urinary tract infection, site not specified; T45.515A Adverse effect of anticoagulants, initial encounter; I48.0 Paroxysmal atrial fibrillation; Z20.822 Contact with and (suspected) exposure to COVID-19; W19.XXXA Unspecified fall, initial encounter; S40.022A Contusion of left upper arm, initial encounter; S40.021A Contusion of right upper arm, initial encounter; E11.9 Type 2 diabetes mellitus without complications; N40.0 Benign prostatic hyperplasia without lower urinary tract symptoms; D64.9 Anemia, unspecified; B18.2 Chronic viral hepatitis C; E78.5 Hyperlipidemia, unspecified; K74.60 Unspecified cirrhosis of liver; E87.5 Hyperkalemia; Z79.4 Long term (current) use of insulin; Z79.01 Long term (current) use of anticoagulants; Z88.0 Allergy status to penicillin; Z79.84 Long term (current) use of oral hypoglycemic drugs; Z66 Do not resuscitate; Z51.5 Encounter for palliative care
CPT/HCPCS: 0223U; 36415; 70450; 71045; 72125; 76770; 80048; 80053; 81001; 82040; 82140; 82550; 82553; 82570; 82607; 82746; 82948; 83540; 83735; 83880; 84156; 84466; 84484; 84550; 85025; 85610; 85730; 86850; 86900; 86920; 87086; 93005; 94760; 94799; 99252; 99285; J0696; J1815; J1940; J2060; J2270; J2353; J2405; J3430; J7030; J7042; J7050; J7070; P9016; P9017